=== PATIENT | male | born 2000 | race Caucasian/White ===

== ENCOUNTER → 2022-02-26 | Outpatient (CLI) | payer OTHER ==
--- NOTE | 2022-02-26 13:40 | XR ---
EXAMINATION TYPE: XR lumbosacral spine min 4V DATE OF EXAM: 02/26/2022 CLINICAL HISTORY: pain COMPARISON: NONE TECHNIQUE: Frontal, lateral, and oblique images of the lumbar spine are obtained. FINDINGS: There are 5 lumbar type vertebral bodies identified. The lumbar spine shows satisfactory alignment without evidence of acute fracture or dislocation. Vertebral body heights are within normal limits. Disc spaces are well preserved. The overlying soft tissue appears unremarkable. IMPRESSION: No acute fracture or dislocation is seen in the lumbar spine.ICD 10 NO FRACTURE, INITIAL EVALUATION
== END | disposition home or self-care (01) ==
LOC: RADXRMAIN 12:57
PROVIDERS: ATTEND Pediatrics Adolescent Medicine
DX: M54.50 Low back pain, unspecified (principal)
CPT/HCPCS: 72110

== ENCOUNTER → 2022-02-26 | Outpatient (CLI) | payer BC, OTHER ==
--- NOTE | 2022-02-26 13:07 | US ---
EXAMINATION TYPE: US scrotum with doppler. Grayscale and color Doppler Duplex imaging performed of valentín tam scrotum. DATE OF EXAM: 02/26/2022 COMPARISON: NONE CLINICAL HISTORY: N50.819 TESTICULAR PAIN. pain right testicle for 1 month EXAM MEASUREMENTS: TESTICLES: Right Testicle: 4.7 x 2.3 x 3.4 cm Left Testicle: 4.5 x 2.7 x 3.5 cm EPIDIDYMIS HEAD: Right Epididymis: 1.5 cm Left Epididymis: 1.3 cm Doppler performed to assess for testicular vascularity; good bilateral color flow and waveforms are s een. There is no evidence of testicular torsion. Presence of hydroceles: yes, lateral to left testicle = 6.4cm Presence of varicoceles: yes, lateral to left testicle IMPRESSION: Left-sided hydrocele. Varicocele is noted as well on the left.
== END | disposition home or self-care (01) ==
LOC: RADUSWWP 12:21
PROVIDERS: ATTEND Pediatrics Adolescent Medicine
DX: N43.3 Hydrocele, unspecified (principal); I86.1 Scrotal varices
CPT/HCPCS: 76870; 93975

== ENCOUNTER → 2024-09-21 | Outpatient (CLI) | payer BC ==
--- NOTE | 2024-09-21 11:18 | US ---
EXAMINATION TYPE: US kidneys/renal and bladder DATE OF EXAM: 09/21/2024 COMPARISON: NONE CLINICAL INDICATION: Male, 23 years old with history of R31.0 GROSS HEMATURIA; Hematuria x 1 time. TECHNIQUE: Grayscale imaging of the bilateral kidneys and urinary bladder: FINDINGS: EXAM MEASUREMENTS: Right Kidney: 11.1 x 3.6 x 5.3 cm Left Kidney: 10.1 x 5.3 x 4.2 cm Right Kidney: No hydronephrosis or masses seen Left Kidney: No hydronephrosis or masses seen Bladder: Not fully distended. There is no evidence for hydronephrosis at this point in time. No nephrolithiasis is seen. No benita s are identified. Corticomedullary differentiation is maintained bilaterally. The urinary bladder is anechoic. IMPRESSION: No hydronephrosis or nephrolithiasis. [facility], , 09/21/2024 11:16 AM
== END | disposition home or self-care (01) ==
LOC: RADUSWWP 10:21
PROVIDERS: ATTEND Urology
DX: R31.0 Gross hematuria (principal)
CPT/HCPCS: 76770